=== PATIENT | male | born 1950 | race Caucasian/White ===

== ENCOUNTER → 2017-07-18 | Outpatient (CLI) | payer OTHER ==
[~2017-07-18] MED LIST: IOPAMIDOL (ISOVUE 370) 100 ML BTL IV ONE
== END ==
LOC: FIMAGING 09:39
PROVIDERS: ATTEND Internal Medicine Cardiovascular Disease
DX: I70.293 Other atherosclerosis of native arteries of extremities, bilateral legs (principal); I70.8 Atherosclerosis of other arteries; I25.10 Atherosclerotic heart disease of native coronary artery without angina pectoris; E78.5 Hyperlipidemia, unspecified
CPT/HCPCS: 75635; Q9967

== ENCOUNTER 2017-09-07 11:19 | Day surgery (SDC) | payer OTHER ==
[2017-09-07] MEDS ORDERED: DIAZEPAM 5 MG TAB PO ONE (11:26)
[2017-09-07] MEDS ORDERED: ASPIRIN EC 325 MG TAB PO ONE (11:26)
[2017-09-07] MEDS ORDERED: FAMOTIDINE 20 MG TAB PO ONE (11:26)
[2017-09-07] MEDS ORDERED: diphenhydrAMINE 25 MG CAP PO ONE (11:26)
[2017-09-07] MEDS ORDERED: NS 1,000 ML IV ONE (11:26)
--- NOTE | 2017-09-07 11:45 | CPEKG ---
Heart Rate: 66 RR Interval: 909 P-R Interval: 156 QRSD Interval: 90 QT Interval: 384 QTC Interval: 403 P Red Devil: 71 QRS Red Devil: 67 T Wave Red Devil: 34 EKG Severity - OTHERWISE NORMAL ECG - EKG Impression: SINUS RHYTHM EKG Impression: ABERRANT COMPLEX, POSSIBLY SUPRAVENTRICULAR Electronically Signed By: Beau Coughlin 07-Sep-2017 13:13:03
[2017-09-07 12:01] LABS: ADD DIFF? NO; ADD MORPH? NO; ADD SCAN? NO; ATYPICAL LYMPHOCYTE FLAG 10 (0-99); FRAGMENT RBC FLAG 0 (0-99); HEMATOCRIT 42.7 % (40.0-51.0); HEMOGLOBIN 15.6 g/dL (13.7-17.5); LEFT SHIFT FLG 0 (0-99); LIPEMIA HEMOLYSIS FLAG 90 (0-99); MEAN CELL HEMOGLOBIN 34.7 pg (27.9-34.1); MEAN CELL HEMOGLOBIN CONCENTR. 36.5 g/dL (32.4-36.7); MEAN CELL VOLUME 94.9 fL (81.5-99.8); PLATELET CLUMPS FLAG 10 (0-99); PLATELET COUNT 188 10^3/uL (150-400); RED CELL DISTRIBUTION WIDTH 11.9 % (11.5-15.2)
[2017-09-07 12:09] LABS: INR 0.93 (0.83-1.16); PROTIME(PATIENT) 12.7 SEC (12.0-15.0)
[2017-09-07 12:29] LABS: ANION GAP 11 mEq/L (8-16); CALCIUM 8.9 mg/dL (8.5-10.4); CARBON DIOXIDE 21 mEq/l (22-31); CHLORIDE 106 mEq/L (97-110); CHOLESTEROL 141 mg/dL (140-220); CHOLESTEROL/HDL RATIO 2.35 RATIO (1.00-4.97); CREATININE 1.2 mg/dL (0.7-1.3); GLOMERULAR FILTRATION RATE > 60; GLUCOSE 97 mg/dL (70-100); HIGH DENSITY LIPOPROTEIN 60 mg/dL (40-65); LDL/HDL RATIO 1.15 RATIO (1.00-3.64); LOW DENSITY LIPOPROTEIN 69 mg/dL (80-100); MAGNESIUM 1.9 mg/dL (1.6-2.3); NON-HIGH DENSITY LIPOPROTEIN 81 mg/dL (90-129); POTASSIUM 4.6 mEq/L (3.5-5.2); SODIUM 138 mEq/L (134-144); TRIGLYCERIDE 61 mg/dL (40-150); VERY LOW DENSITY LIPOPROTEINS 12 mg/dL (8-25)
[2017-09-07] MEDS ORDERED: LIDOCAINE 1% 300 MG/30 ML SDV ONE (13:25)
[2017-09-07] MEDS ORDERED: MIDAZOLAM 2 MG/2 ML VIAL ONE ×2 (13:26→14:15)
[2017-09-07] MEDS ORDERED: fentaNYL 100 MCG/2 ML INJ ONE ×2 (13:26→14:14)
[2017-09-07] MEDS ORDERED: HEPARIN 10,000 UNIT/10 ML MDV ONE (13:27)
[2017-09-07] MEDS ORDERED: IOPAMIDOL (ISOVUE-300) 150 ML BTL ONE ×3 (13:28→14:34)
--- NOTE | 2017-09-07 13:45 | PDHPUP ---
History & Physical Update H&P update statement: This history and physical update is based on an assessment of the patient which was completed after admission or registration (within 24 hours), but prior to the surgery/procedure. H&P update: H&P reviewed & patient examined, no change in patient's condition since H&P completed
--- NOTE | 2017-09-07 13:46 | PDPROPOC ---
Sedation Plan of Care Sedation Plan of Care: vital signs stable, mental status noted, patient educated of risks, benefits, alternatives, patient can tolerate sedation ASA Classification: ASA 3 Planned drugs: fentanyl, midazolam Mallampati Score: Class 2 Mallampati Reference Image: Patient passed 3-3-2 rule?: Yes
--- NOTE | 2017-09-07 14:25 | PDDXCAT ---
Diagnostic Cath Note - . Date: 09/07/17 Web Page Developer: Matt Indication: other (Known claudication) - Procedure Access: left groin Procedure: other Patient Problems: Problems Problem Status Onset S/P CABG x 2 Acute CAD (coronary artery disease), kiana coronary artery Chronic HTN (hypertension) Chronic Hyperlipidemia Chronic Peripheral arterial disease Chronic Presence of stent in LAD coronary artery Chronic Presence of stent in left circumflex coronary artery Chronic Presence of stent in right coronary artery Chronic
[2017-09-07] MEDS ORDERED: CLOPIDOGREL BISULFATE 75 MG TAB ONE (15:26)
[2017-09-07] MEDS ORDERED: HYDROCODONE/APAP 5/325 TAB PO PRN (15:57)
[2017-09-07] MEDS ORDERED: OXYCODONE/APAP 5/325 TAB PO PRN (15:57)
[2017-09-07] MEDS ORDERED: ATROPINE SULFATE 1 MG/10 ML SYR IVP PRN (15:57)
[2017-09-07] MEDS ORDERED: ONDANSETRON 4 MG/2 ML VIAL IVP PRN (15:57)
[2017-09-07] MEDS ORDERED: NITROGLYCERIN 0.4 MG BTL SL PRN (15:57)
--- NOTE | 2017-09-07 21:23 | CPIP ---
[f rep st] INVASIVE CARDIAC PROCEDURE DATE OF PROCEDURE: 09/07/2017 PROCEDURE PERFORMED: 1. Abdominal aortogram with bilateral iliac runoff. 2. Bilateral lower extremity runoff. 3. Percutaneous transluminal angioplasty of the distal superficial femoral artery on the right side with 4th order placement of a contralateral catheter from the left groin approach and common femoral approach into the common iliac, external iliac, common femoral, and then into the superficial femoral artery. INDICATION FOR THE PROCEDURE: Lifestyle limiting claudication, unresponsive to medical therapy and w alk therapy. PROCEDURE IN DETAIL: After informed consent was obtained, the region of the left groin was cleaned, prepped, and draped in sterile fashion. Approximately 10 cc of 1% lidocaine was utilized for local a nesthesia. A 6-[place] sheath was placed to the left common femoral artery and a pigtail catheter was then advanced over a wire into the proximal portion of the descending abdominal aorta. The catheter was aspirated and flushed, pressure checked. The patient underwent abdominal aortogram with bilater al iliac runoff demonstrating widely patent origins of the left renal artery, which also appears to h ave an accessory renal. The right renal artery is also widely patent. The superior mesenteric arter y, its origin appears to be widely patent. Distal to the renal takeoff, there is diffuse atheroscler osis involving the abdominal aorta and in the distal abdominal aorta just above the bifurcation there does appear to be a small saccular enlargement of the aorta, which is not greater than 3 mm. The di stal abdominal aorta appears to be diffusely atherosclerotic. There is no flow-limiting obstruction of the aorta, but definite severe calcification and atherosclerosis in this region. The origins of t he common iliacs on both sides are widely patent. There is approximately 50% stenosis of the proxima l portion of the right common iliac vessel. The internal iliacs bilaterally are widely patent. Ther e is evidence of brisk flow and runoff through the external iliacs on the right and left side to the level of the common femoral. A contra catheter and Glidewire were then used to gain access to the superficial femoral artery on th e right side. The catheter was advanced across the right common iliac vessel into the external iliac vessel, the common iliac vessel and then finally into the superficial femoral artery. The patient t елена underwent selective angiography of the SFA, documenting a 95% obstruction of the superficial femo ral artery as it enters with at least 4 different multi-segmental lesions that were heavily calcified in this region. The last lesion was approximately 70%. There was JOSÉ MIGUEL-3 flow distal to the vessel, but again heavily calcified lesions in the vessel. The angled Glidewire was then advanced across th e lesion in question. The 40% lesion in the popliteal proper was left alone and not treated. The wi re was prolapsed into the anterior tibial artery and the vessel was then ballooned with a 5.0 X 60 Ch arger [employer] balloon, with favorable angiographic results and 30% residual stenosis status post [employer]ENTICE of the superficial femoral artery of the right vessel. There was excellent three-vessel ru noff post procedure. We then exchanged the balloon for a Lutonix 6.0 x 150 mm balloon. It was bonifacio d at the site of the serial inflations and inflated to a maximum pressure of 12 atmospheres, with exc ellent angiographic results with 3 vessel runoff to the this distal vessel. Post procedure, there wa s approximately 30% residual stenosis in 1 location and the other lesions appear to be 15% to 20% obs tructed. We then pulled the Contra catheter and sheath back into the left common iliac vessel and pe rformed angiography in an BENZ caudal projection. This demonstrated pretty significant calcification of the ostium of the right and left common iliacs at the level of the bifurcation of the aorta. No f low-limiting obstruction was identified using this technique. The internal iliac is significantly di seased with 2 serial 50% lesions at their takeoff in origin from the common iliac vessel. The financial center manager al iliac vessel was widely patent to the level of the common femoral. The Contra sheath was exchanged for a 7-[place] short sheath, and angiography of the common femoral, f emoral, and profunda femoral bifurcation was then performed. This demonstrates a 70% to 80% obstruct ion of the common femoral with complex atheroma involving the origin of the profunda femoral and the superficial femoral vessel on the left side. The stick was above this level and in the common femora l. Therefore, we performed Angio-Seal arteriotomy repair in this area ultimately. We followed this by a unilateral lower extremity runoff. The superficial femoral was widely patent with 30% lesions a long its course and 20% lesions in the popliteal. There was excellent three-vessel runoff to the lev el of the mid calf. The patient tolerated the procedure well without immediate complication, returne d to the post cath recovery unit in good and stable condition, where a stat postoperative pulse check and blood pressure will be obtained. SUMMARY OF FINDINGS: 1. 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 There is disease involving the origin of the right common iliac vessel, the left common iliac vessel, the common femoral on the left side as well as the bifurcation of the superficial femoral an d profunda. There is 3 vessel runoff on the left side to the level of the mid calf and I expect that if the patient has claudication on the left side, that he would be a candidate for endarterectomy of this site. 2. The patient had critical and obstructive lesions involving the SFA on the right side, with serial lesions that were relatively heavily calcified. This responded nicely to percutaneous transluminal angioplasty as well as with treatment with the drug-eluting balloon inflation in this area. The leonela ent is to be discharged home in 3 hours and will be seen in followup in the clinic in the next 2-3 we eks. He knows to present promptly to the emergency department should he experience bleeding from the groin site, pain in his legs, discoloration or pain or paresthesia in either of his lower extremitie s or feet following this procedure. IMPRESSION: Successful balloon angioplasty and drug-eluting balloon angioplasty of the superficial f emoral artery on the right side. /[id number]/MODL
== END 2017-09-07 19:24 | disposition home or self-care (01) ==
LOC: FCATH 11:19
PROVIDERS: ATTEND Internal Medicine Cardiovascular Disease
PROC: B41F1ZZ Fluoroscopy of Right Lower Extremity Arteries using Low Osmolar Contrast (ICD-10-PCS; principal; 2017-09-07)
PROC: B41B1ZZ Fluoroscopy of Other Intra-Abdominal Arteries using Low Osmolar Contrast (ICD-10-PCS; principal; 2017-09-07)
PROC: 047K3ZZ Dilation of Right Femoral Artery, Percutaneous Approach (ICD-10-PCS; principal; 2017-09-07)
DX: I70.211 Atherosclerosis of native arteries of extremities with intermittent claudication, right leg (principal); I25.10 Atherosclerotic heart disease of native coronary artery without angina pectoris; I10 Essential (primary) hypertension; E78.5 Hyperlipidemia, unspecified; Z95.1 Presence of aortocoronary bypass graft
CPT/HCPCS: 37224; 75625; 75716; 93005; C1725; C1769; C1760; J1644; J2250; J3010; Q9967